=== PATIENT | female | born 1975 | race Caucasian/White ===

== ENCOUNTER 2017-07-02 22:16 | Emergency (ER) | payer MEDICAID ==
[~2017-07-02] VITALS: Ht 160 cm; Wt 72.5 kg
[~2017-07-02 22:16] MED LIST: ACET-2158 PO; NIFE30TA60 PO; TRAM50TA2 PO
[2017-07-02 22:26] VITALS: Ht 160 cm; Wt 72.5 kg
--- NOTE | 2017-07-02 23:26 | ERA ---
ER Documentation Chief Complaint Date/Time DATE: 07/02/17 TIME: 23:26 Chief Complaint c/o headache x 1 day. Had vascular surgery to brain previously. (+) N/V. HPI The patient is a 42-year-old female, presenting with right occipital headache for 1 day, she has similar symptoms previously about 5 years ago prior to AVMs surgery. She had history of hypertension but did not take medication for more than a month. She denies fever, chills, blurred vision, facial pain, neck pain , chest pain, dyspnea, abdominal pain, vomiting, dysuria. She does not smoke or drink Past medical history: Hypertension Past surgical history: AVM surgery 5 years ago ROS All systems reviewed and are negative except as per history of present illness. Medications Home Meds Reported Medications Acetaminophen* (Acetaminophen*) 500 MG Extra Strength Tablet, 500 MG PO Q4H Y for PAIN AND OR ELEVATED TEMP, TAB 07/03/17 Discontinued Scripts Tramadol HCl (Tramadol HCl) 50 Mg Tab, 50 MG PO Q6H Y for PAIN, #30 TAB 0 Refills Prov:STEVENSON PAIGE M. 01/24/15 Nifedipine* (Nifedipine ER*) 30 Mg Tablet.sa, 30 MG PO DAILY for 30 Days, TAB.SA 2 Refills Prov:GRECIARADHA GómezSARA M. 01/24/15 Acetaminophen (TYLENOL 325 MG TAB) 325 Mg Tab, 650 MG PO .ER BRIDGE Y for MILD PAIN/FEVER, #30 TAB 2 Refills Prov:TIM PAIGEBhavin M. 01/24/15 Allergies Allergies: Coded Allergies: No Known Allergies (Unverified Allergy, Mild, 07/03/17) PMhx/Soc Anesthesia Reaction: No Hx Neurological Disorder: No Hx Respiratory Disorders: No Hx Cardiac Disorders: Yes (HTN) Hx Psychiatric Problems: No Hx Miscellaneous Medical Probl: No Hx Alcohol Use: No Hx Substance Use: No Hx Tobacco Use: No Smoking Status: Never smoker Physical Exam Vitals Vital Signs Date Time Temp Pulse Resp B/P Pulse Ox O2 Delivery O2 Flow Rate FiO2 07/03/17 01:21 98.6 78 18 161/96 100 07/02/17 22:26 98.3 79 18 175/100 100 Physical Exam Const: No acute distress. Head: Atraumatic. Eyes: Normal Conjunctiva. ENT: Normal External Ears, Nose and Mouth. Neck: Full range of motion. No meningismus. Resp: Clear to auscultation bilaterally. Cardio: Regular rate and rhythm. Abd: Soft, non distended, normal bowel sounds, non tender. Skin: No petechiae or rashes. Back: No midline or flank tenderness. Ext: No cyanosis, or edema. Neur: Awake and alert. No focal deficit Psych: Normal Mood and Affect. Result Diagram: 07/02/17 2338 07/02/17 2338 Results 24 hrs Laboratory Tests Test 07/02/17 23:38 White Blood Count 13.910^3/ul Red Blood Count 4.7110^6/ul Hemoglobin 14.1g/dl Hematocrit 41.9% Mean Corpuscular Volume 89.0fl Mean Corpuscular Hemoglobin 29.9pg Mean Corpuscular Hemoglobin Concent 33.7g/dl Red Cell Distribution Width 12.5% Platelet Count 07362^3/UL Mean Platelet Volume 12.0fl Neutrophils % 63.1% Lymphocytes % 27.1% Monocytes % 6.9% Eosinophils % 2.2% Basophils % 0.4% Nucleated Red Blood Cells % 0.0/100WBC Neutrophils # 8.810^3/ul Lymphocytes # 3.810^3/ul Monocytes # 1.010^3/ul Eosinophils # 0.310^3/ul Basophils # 0.110^3/ul Nucleated Red Blood Cells # 0.010^3/ul Prothrombin Time 12.4Sec Prothrombin Time Ratio 1.0 INR International Normalized Ratio 0.92 Activated Partial Thromboplast Time 23.8Sec Sodium Level 136mmol/L Potassium Level 3.9mmol/L Chloride Level 104mmol/L Carbon Dioxide Level 23mmol/L Anion Gap 13 Blood Urea Nitrogen 12mg/dl Creatinine 0.49mg/dl Glucose Level 143mg/dl Calcium Level 9.9mg/dl Current Medications Medications (Trade) Dose Ordered Sig/Philip Route PRN Reason Start Time Stop Time Status Last Admin Dose Admin Ondansetron HCl (Zofran Inj) 4 mg ONCE STAT IV 07/02/17 23:58 07/03/17 00:00 DC 07/03/17 00:17 Morphine Sulfate (morphine) 2 mg ONCE STAT IV 07/02/17 23:58 07/03/17 00:00 DC 07/03/17 00:17 Morphine Sulfate 2 mg 2 mg ONCE ONCE IV 07/03/17 01:00 07/03/17 01:01 DC 07/03/17 00:52 Sodium Chloride (NS) 100 ml @ ud STK-MED ONCE .ROUTE 07/03/17 01:08 07/03/17 01:09 DC 07/03/17 01:29 Iohexol (Omnipaque 300mg/ ml) 150 ml STK-MED ONCE .ROUTE 07/03/17 01:08 07/03/17 01:09 DC 07/03/17 01:29 Procedures/[place] [id number] Radiology Main Line: [phone] DIAGNOSTIC IMAGING REPORT Patient: TALAT ZUNIGA : 1975 Age: 42 Sex: F MR #: [id number] DOS: 07/02/17 2358 Ordering MD: MANE HWANG MD Location: E/R Room/Bed: PROCEDURE: CTA head. CLINICAL INDICATION: Headache. TECHNIQUE: Direct spiral 0.63 mm axial sections were obtained through the intracranial vasculature with the use of 100 cc of Omnipaque 350 nonionic intravenous contrast material. Axial MIP, coronal, and sagittal reformations were obtained. The images were reviewed on a PACS workstation. CTDIvol: 90.42, 29.04 mGy. DLP: 673.44 mGy-cm. One or more of the following dose reduction techniques were used: Automated exposure control. Adjustment of the mA and/or kV according to patient size. Use of iterative reconstruction technique. COMPARISON: None available FINDINGS: There is an arteriovenous malformation in the right occipital lobe with a nidus measuring approximately 3.2 x 2.4 x 2.7 cm. Beam-hardening artifact from embolization material in the AVM limits evaluation of adjacent structures. The arteriovenous malformation is supplied by the right PERSONNEL RECORDS CLERK, which is enlarged. There is venous drainage from the AVM into the vein of Bryce, right transverse sinus, and several posterior cerebral cortical veins. The bilateral ICAs, ACAs, MCAs, and accountant budget are widely patent. The vertebrobasilar system is patent. The visualized cerebellar arteries are unremarkable. No arterial aneurysm is identified. No intracranial hemorrhage is identified, although evaluation is slightly limited by the presence of intravenous contrast. IMPRESSION: 1. Arteriovenous malformation in the right occipital lobe with a nidus measuring approximately 3.2 cm. There has been prior partial embolization of the AVM. Beam-hardening artifact from the embolization material limits evaluation of the adjacent structures. The AVM is supplied by the right PERSONNEL RECORDS CLERK, with venous drainage into the vein of Bryce, right transverse sinus, and several posterior cerebral cortical veins. 2. No arterial aneurysm is identified. 3. No stenosis or occlusion of the major intracranial arteries. 4. No intracranial hemorrhage is identified, although evaluation is slightly limited by the presence of intravenous contrast. RPTAT: HTAR .Jermaine Newell MD, MD Date Time Electronically viewed and signed by .Jermaine Newell MD, MD on 07/03/2017 02:24 .R/ CC: MANE HWANG MD MEDICAL MAKING DECISION: The patient is a 42-year-old female, presenting with acute headache most likely due to AVM. She was treated with morphine 2 mg IV 3 for headache and Zofran 4 mg IV 2 for nausea with good response. Consultation: I discussed the patient with the on-call neurosurgeon Dr. john at 2:40 AM, who was made aware of the lab, the treatment, the patient condition. He recommended transfer the patient. I discussed the patient with Dr. Shetty at 2 [address] [facility], who was made aware of the lab, the treatment, the present condition. She accepted the transfer Departure Diagnosis: Primary Impression: Headache Additional Impression: AVM (arteriovenous malformation) brain Condition: Good Comments She is being transferred to [facility] via ambulance Critical Care: Time: 35 minutes excluding all billable procedures. Treatments/Evaluations: Close monitoring and treatment of unstable vital signs, cardiorespiratory, and neurologic status, while maintaining tight balance of fluid, respiratory, and cardiac interventions. MANE HWANG MD Jul 02, 2017 23:26
[2017-07-02] MEDS ORDERED: morphine 4 MG/ML VIAL IV STA (23:58)
[2017-07-02] MEDS ORDERED: ONDANSETRON 4 MG INJ IV STA (23:58)
[2017-07-03 00:07] LABS: BASOPHIL # 0.1 10^3/ul (0.0-0.1); BASOPHILS % 0.4 % (0.0-2.0); EOSINOPHILS # 0.3 10^3/ul (0.0-0.5); EOSINOPHILS % 2.2 % (0.0-7.0); HEMATOCRIT 41.9 % (37.0-47.0); HEMOGLOBIN 14.1 g/dl (12.0-16.0); LYMPHOCYTES # 3.8 10^3/ul (0.8-2.9); LYMPHOCYTES % 27.1 % (15.0-51.0); MEAN CORPUSCULAR HEMOGLOBIN 29.9 pg (29.0-33.0); MEAN CORPUSCULAR HGB CONC 33.7 g/dl (32.0-37.0); MONOCYTES % 6.9 % (0.0-11.0); NEUTROPHIL # 8.8 10^3/ul (1.6-7.5); NEUTROPHILS % 63.1 % (39.0-77.0); PLATELET COUNT 249 10^3/UL (140-415); RED BLOOD COUNT 4.71 10^6/ul (4.20-5.40); RED CELL DISTRIBUTION WIDTH 12.5 % (11.5-14.5); WHITE BLOOD COUNT 13.9 10^3/ul (4.8-10.8)
[2017-07-03 00:25] LABS: CALCIUM 9.9 mg/dl (8.4-10.2); CREATININE 0.49 mg/dl (0.44-1.00); POTASSIUM 3.9 mmol/L (3.5-5.1)
[2017-07-03 00:26] LABS: INR 0.92; PARTIAL THROMBOPLASTIN TIME 23.8 Sec (25.0-35.0); PROTIME 12.4 Sec (12.2-14.2)
[2017-07-03] MEDS ORDERED: morphine 2 MG INJ IV ONE ×2 (01:00→06:00)
[2017-07-03] MEDS ORDERED: IOHEXOL 300MG/ML 150 ML BTL ONE (01:08)
[2017-07-03] MEDS ORDERED: SOD CHLORIDE 0.9% 100 ML ONE (01:08)
--- NOTE | 2017-07-03 02:24 | RADRPT ---
PROCEDURE: CTA head. CLINICAL INDICATION: Headache. TECHNIQUE: Direct spiral 0.63 mm axial sections were obtained through the intracranial vasculature with the use of 100 cc of Omnipaque 350 nonionic intravenous contrast material. Axial MIP, coronal , and sagittal reformations were obtained. The images were reviewed on a PACS workstation. CTDIvol: 90.42, 29.04 mGy. DLP: 673.44 mGy-cm. One or more of the following dose reduction techniques were used: Automated exposure control. Adjustment of the mA and/or kV according to patient size. Use of iterative reconstruction technique. COMPARISON: None available FINDINGS: There is an arteriovenous malformation in the right occipital lobe with a nidus measuring approximat emma 3.2 x 2.4 x 2.7 cm. Beam-hardening artifact from embolization material in the AVM limits evaluat ion of adjacent structures. The arteriovenous malformation is supplied by the right AUTOMOTIVE TECHNOLOGY INSTRUCTOR, which is en larged. There is venous drainage from the AVM into the vein of Bryce, right transverse sinus, and se veral posterior cerebral cortical veins. The bilateral ICAs, ACAs, MCAs, and knife blade polisher are widely patent. The vertebrobasilar system is patent. The visualized cerebellar arteries are unremarkable. No arterial aneurysm is identified. No intracranial hemorrhage is identified, although evaluation is slightly limited by the presence of intravenous contrast. IMPRESSION: 1. Arteriovenous malformation in the right occipital lobe with a nidus measuring approximately 3.2 cm. There has been prior partial embolization of the AVM. Beam-hardening artifact from the embolizat ion material limits evaluation of the adjacent structures. The AVM is supplied by the right AUTOMOTIVE TECHNOLOGY INSTRUCTOR, wit h venous drainage into the vein of Bryce, right transverse sinus, and several posterior cerebral cor tical veins. 2. No arterial aneurysm is identified. 3. No stenosis or occlusion of the major intracranial arteries. 4. No intracranial hemorrhage is identified, although evaluation is slightly limited by the presenc e of intravenous contrast. RPTAT: HTAR .Jermaine Newell MD, Date Time Electronically viewed and signed by .Jermaine Newell MD, on 07/03/2017 02:24 .R/
[2017-07-03] MEDS ORDERED: ACET-141 PO (04:02)
[2017-07-03 05:40] VITALS: TEMP 98.1
[2017-07-03] MEDS ORDERED: HYDROmorphONE 1 MG/ML SYG ONE (06:13)
[2017-07-03] MEDS ORDERED: HYDROmorphONE 1 MG/ML SYG IV STA (06:29)
[2017-07-03 07:30] VITALS: BP 118/80; PULSE 74; RESP 18
== END 2017-07-03 07:49 | disposition short-term general hospital (02) ==
LOC: E/R 22:16
DX: R51 Headache (principal); Q28.2 Arteriovenous malformation of cerebral vessels; I10 Essential (primary) hypertension
CPT/HCPCS: 36415; 70496; 80048; 85025; 85610; 85730; 96374; 96375; 96376; J1170; J2270; J2405; Q9967; Z7502; Z7610